=== PATIENT | male | born 1950 | race Caucasian/White ===

== ENCOUNTER 2018-01-07 18:20 | Emergency (ER) | payer MEDICARE ==
--- NOTE | 2018-01-07 19:20 | EDM.PDOC ---
ED HPI GENERAL MEDICAL PROBLEM - General Chief Complaint: General Stated Complaint: DIZZY, BLURRY VISION, CONFUSION Time Seen by Provider: 01/07/18 18:45 Source of Information: Reports: Patient, Family History Limitations: Reports: Physical Impairment - History of Present Illness INITIAL COMMENTS - FREE TEXT/NARRATIVE: 67-year-old male, usually healthy arrives after 4-5 hours of confusion, dysarthria, and visual disturbance and also a lack of the ability to stay focused on task. Last known normal was around 2 PM. He does not think he hit his head. He has had headaches for the last 2-3 days which is very unusual for him, he remembers taking 4 aspirin at bedtime 2 nights ago. He is oriented to place and person but not time. He has to struggle to remember the events of the day but does not have any block of total amnesia. Onset: Unknown/Unsure Severity: Moderate Associated Symptoms: Reports: Headaches, Other (Legs feel heavy bilaterally). Denies: Fever/Chills, Malaise, Shortness of Breath Denies Pain Score (Numeric/FACES): 0 - Related Data Allergies Allergy/AdvReac Type Severity Reaction Status Date / Time Sulfa (Sulfonamide Allergy Cannot Verified 08/31/15 07:14 Antibiotics) Remember Home Meds: Home Meds Hydrochlorothiazide 12.5 mg PO DAILY 08/29/15 [History] Acetaminophen/HYDROcodone [[place] 325-5 MG] 1 - 2 tab PO Q6H PRN 01/07/18 [ History] Oxymetazoline [Afrin Original 0.05% Nasal [place]] 2 spray NASBOTH DAILY 01/07/18 [History] Past Medical History HEENT History: Reports: Impaired Vision Cardiovascular History: Reports: High Cholesterol, Hypertension - Past Surgical History GI Surgical History: Reports: Appendectomy Social & Family History - Tobacco Use Smoking Status *Q: Never Smoker Second Hand Smoke Exposure: No - Caffeine Use Caffeine Use: Reports: Coffee, Soda - Alcohol Use Days Per Week of Alcohol Use: 0 - Recreational Drug Use Recreational Drug Use: No ED ROS GENERAL - Review of Systems Review Of Systems: See Below Constitutional: Denies: Fever, Chills, Malaise HEENT: Reports: Vision Change (Feels his left vision is not as sharp as it should be) Respiratory: Denies: Shortness of Breath Cardiovascular: Denies: Chest Pain GI/Abdominal: Denies: Abdominal Pain, Nausea, Vomiting : Reports: No Symptoms Skin: Reports: No Symptoms Neurological: Reports: Confusion, Dizziness, Headache, Trouble Speaking, Difficulty Walking, Change in Speech. Denies: Weakness Psychiatric: Reports: No Symptoms ED EXAM, GENERAL - Physical Exam Exam: See Below Exam Limited By: No Limitations General Appearance: Alert, No Apparent Distress Eye Exam: Left Eye: Vision Changes (Left vision is blurry, unsure if it's different from his chronic vision), Bilateral Eye: EOMI Head: Atraumatic, Normocephalic Neck: Normal Inspection, Supple. No: Carotid Bruit Respiratory/Chest: No Respiratory Distress, Lungs Clear Cardiovascular: Regular Rate, Rhythm, Extra Beats (Very occasional ectopic beats ) GI/Abdominal: Soft, Non-Tender Extremities: Normal Inspection Neurological: Alert, Confused, Disoriented, Slow to Respond, Memory Loss Recent Events. No: Oriented (Somewhat disoriented to time), Memory Loss Remote Events Psychiatric: Normal Affect, Normal Mood Skin Exam: Warm, Dry Course - Vital Signs Last Recorded V/S: Last Vital Signs Temp 94.8 F L 01/07/18 18:45 Pulse 66 01/07/18 20:24 Resp 16 01/07/18 18:45 BP 115/79 01/07/18 20:24 Pulse Ox 99 01/07/18 20:24 Orthostatic Blood Pressure [ 140/83 Standing] Orthostatic Blood Pressure [ 134/82 Sitting] Orthostatic Blood Pressure [ 127/78 Supine] - Orders/Labs/Meds Orders: Active Orders 24 hr Category Date Time Status Head wo Cont [CT] Stat Exams 01/07/18 19:10 Taken Sodium Chloride 0.9% [Saline Flush] Med 01/07/18 20:49 Active 10 ml FLUSH ASDIRECTED PRN Saline Lock Insert [OM.PC] Routine Oth 01/07/18 20:49 Ordered Medication Orders Sodium Chloride (Saline Flush) 10 ml FLUSH ASDIRECTED PRN PRN Reason: Keep Vein Open Last Admin: 01/07/18 20:58 Dose: 10 ml Labs: Laboratory Tests 01/07/18 01/07/18 Range/Units 19:20 19:20 WBC 7.1 (4.5-11.0) K/uL RBC 4.87 (4.30-5.90) M/uL Hgb 15.6 H (12.0-15.0) g/dL Hct 45.3 (40.0-54.0) % MCV 93 (80-98) fL MCH 32 H (27-31) pg MCHC 34 (32-36) % Plt Count 215 (150-400) K/uL Neut % (Auto) 61 (36-66) % Lymph % (Auto) 25 (24-44) % [place] % (Auto) 9 H (2-6) % Eos % (Auto) 5 H (2-4) % Baso % (Auto) 0 (0-1) % Sodium 142 (140-148) mmol/L Potassium 3.4 L (3.6-5.2) mmol/L Chloride 104 (100-108) mmol/L Carbon Dioxide 30 (21-32) mmol/L Anion Gap 11.4 (5.0-14.0) mmol/L BUN 14 (7-18) mg/dL Creatinine 1.0 (0.8-1.3) mg/dL Est Cr Clr Drug Dosing 84.48 mL/min Estimated GFR (MDRD) > 60 (>60) Glucose 122 H (74-106) mg/dL Calcium 9.2 (8.5-10.1) mg/dL Total Bilirubin 0.3 (0.2-1.0) mg/dL AST 26 (15-37) U/L ALT 28 (12-78) U/L Alkaline Phosphatase 70 (46-116) U/L Total Protein 7.0 (6.4-8.2) g/dL Albumin 3.9 (3.4-5.0) g/dL Globulin 3.1 (2.3-3.5) g/dL Albumin/Globulin Ratio 1.3 (1.2-2.2) Meds: Medications Generic Name Dose Route Start Last Admin Trade Name Freq PRN Reason Stop Dose Admin Sodium Chloride 10 ml 01/07/18 20:49 01/07/18 20:58 Saline Flush FLUSH 10 ml ASDIRECTED PRN Administration Keep Vein Open - Re-Assessments/Exams Free Text/Narrative Re-Assessment/Exam: 01/07/18 19:28 This patient has had some type of event very concerning, possibly CVA. Doubt transient global amnesia with the physical symptoms. CT the head without contrast will be obtained as well as a CBC and CMP. 01/07/18 20:49 CT was negative and labs were reassuring. After a phone consultation with Dr. Joshi, neurology in [place], patient will be transported for a more thorough evaluation. Departure - Departure Time of Disposition: 21:10 Disposition: DC/Tfer to Other 70 Condition: Fair Clinical Impression: Dysarthria, Confusion - Discharge Information Referrals: Bryant Ernandez MD [Primary Care Provider] - Forms: ED Department Discharge Care Plan Goals: Patient is stable, will be transported by ground to [facility] for a more thorough neurologic evaluation. - My Orders Last 24 Hours: My Active Orders 01/07/18 19:10 Head wo Cont [CT] Stat 01/07/18 20:49 Sodium Chloride 0.9% [Saline Flush] 10 ml FLUSH ASDIRECTED PRN Saline Lock Insert [OM.PC] Routine - Assessment/Plan Last 24 Hours: My Active Orders 01/07/18 19:10 Head wo Cont [CT] Stat 01/07/18 20:49 Sodium Chloride 0.9% [Saline Flush] 10 ml FLUSH ASDIRECTED PRN Saline Lock Insert [OM.PC] Routine
[2018-01-07 20:25] VITALS: BP 115/79
[2018-01-07] MEDS ORDERED: Sodium Chloride 0.9% 10 ML Syringe FLUSH PRN (20:49)
== END 2018-01-07 21:10 | disposition other institution (70) ==
LOC: JP.ED 18:20
DX: R47.1 Dysarthria and anarthria (principal); R41.0 Disorientation, unspecified; I10 Essential (primary) hypertension; E78.00 Pure hypercholesterolemia, unspecified; Z88.2 Allergy status to sulfonamides
CPT/HCPCS: 36415; 70450; 80053; 85025; 99285; J7050; 99284

== ENCOUNTER 2021-02-21 21:18 | Emergency (ER) | payer MEDICARE, MEDICAID ==
[2021-02-21 21:54] VITALS: BP 161/83; PULSE 85
--- NOTE | 2021-02-21 22:45 | EDM.PDOC ---
ED HPI GENERAL MEDICAL PROBLEM - General Chief Complaint: Genitourinary Problem Stated Complaint: KIDNEY STONES? Time Seen by Provider: 02/21/21 22:00 Source of Information: Reports: Patient History Limitations: Reports: No Limitations - History of Present Illness INITIAL COMMENTS - FREE TEXT/NARRATIVE: 70-year-old male with a history of kidney stones, presents with inability to urinate, lower abdominal pressure and pain and left flank pain earlier today. No fevers or chills. He feels he needs to urinate but cannot. Has some chronic issues with constipation, he took a stool softener earlier today and had a good bowel movement and that helped his flank pain but he still has urine retention. Onset: Gradual Duration: Hour(s): (Symptoms have been bothering him for about the last 8 hours) Location: Reports: Other (Left flank pain and lower abdominal pain) Associated Symptoms: Reports: Other (Inability to urinate). Denies: Fever/Chills, Headaches, Loss of Appetite, Nausea/Vomiting, Shortness of Breath denies pain Pain Score (Numeric/FACES): 0 - Related Data Allergies Allergy/AdvReac Type Severity Reaction Status Date / Time Sulfa (Sulfonamide Allergy Cannot Verified 08/31/15 07:14 Antibiotics) Remember Home Meds: Home Meds Hydrochlorothiazide 12.5 mg PO DAILY 08/29/15 [History] Oxymetazoline [Afrin Original 0.05% Nasal [place]] 2 spray NASBOTH DAILY 01/07/18 [History] Past Medical History HEENT History: Reports: Impaired Vision Cardiovascular History: Reports: High Cholesterol, Hypertension Genitourinary History: Reports: Renal Calculus Musculoskeletal History: Reports: Fracture - Infectious Disease History Infectious Disease History: Reports: Chicken Pox, Measles, Mumps - Past Surgical History GI Surgical History: Reports: Appendectomy Male Surgical History: Reports: Lithotripsy (ESWL) Social & Family History - Tobacco Use Tobacco Use Status *Q: Never Tobacco User - Caffeine Use Caffeine Use: Reports: Coffee - Recreational Drug Use Recreational Drug Use: No ED ROS GENERAL - Review of Systems Review Of Systems: See Below Constitutional: Denies: Fever, Chills HEENT: Reports: No Symptoms Respiratory: Denies: Shortness of Breath Cardiovascular: Denies: Chest Pain GI/Abdominal: Reports: Abdominal Pain (Lower abdomen), Constipation (Does have problems with constipation). Denies: Diarrhea, Nausea, Vomiting Musculoskeletal: Reports: Muscle Pain Neurological: Reports: No Symptoms Psychiatric: Reports: No Symptoms ED EXAM, GI/ABD - Physical Exam Exam: See Below Exam Limited By: No Limitations General Appearance: Alert, No Apparent Distress (Looks uncomfortable but not distressed) Eyes: Bilateral: Normal Appearance Head: Atraumatic Respiratory/Chest: No Respiratory Distress, Lungs Clear Cardiovascular: Regular Rate, Rhythm GI/Abdominal Exam: Soft, Other (There is a fullness to the lower abdomen with discomfort with palpation) (Male) Exam: Suprapubic Fullness Extremities: Normal Inspection Neurological: Alert, Oriented Psychiatric: Anxious Skin Exam: Warm, Dry Course - Vital Signs Last Recorded V/S: Last Vital Signs Temp 97.1 F 02/21/21 21:53 Pulse 85 02/21/21 21:53 Resp 18 02/21/21 21:53 BP 161/83 H 02/21/21 21:53 Pulse Ox 99 02/21/21 21:53 - Orders/Labs/Meds Orders: Active Orders 24 hr Category Date Time Status Insert [place] Catheter [Insert Urinary Catheter] [OM.PC] Care 02/21/21 22:45 Ordered Q24H Labs: Laboratory Tests 02/21/21 Range/Units 22:39 Urine Color Yellow (YELLOW) Urine Appearance Clear (CLEAR) Urine pH 6.0 (5.0-8.0) Ur Specific [place] 1.020 (1.008-1.030) Urine Protein Negative (NEGATIVE) mg/dL Urine Glucose (UA) Negative (NEGATIVE) mg/dL Urine Ketones Negative (NEGATIVE) mg/dL Urine Occult Blood Moderate H (NEGATIVE) Urine Nitrite Negative (NEGATIVE) Urine Bilirubin Negative (NEGATIVE) Urine Urobilinogen 0.2 (0.2-1.0) EU/dL Ur Leukocyte Esterase Negative (NEGATIVE) Urine RBC 10-20 H (0-5) Urine WBC 0-5 (0-5) Ur Epithelial Cells Not seen Amorphous Sediment Not seen Urine Bacteria Rare Urine Mucus Not seen - Re-Assessments/Exams Free Text/Narrative Re-Assessment/Exam: 02/21/21 22:45 Bladder scan showed about 300 cc of urine, so a straight cath was placed and the bladder emptied. His urine looked a little cloudy but it resolved all his symptoms. A UA was ordered, if clear CT scan will be considered. 02/22/21 00:18 UA showed 10-20 RBCs, otherwise negative. CT was done with the following result Impression: 1. A 6 mm stone at the bladder neck, concerning for bladder outlet obstruction. 2. Numerous bilateral small nonobstructing renal stones. No evidence of ureteral obstruction. Patient will return tomorrow if he is still having urinary outlet obstruction issues. Hopefully he just passes a stone. Departure - Departure Time of Disposition: 00:36 Disposition: Home, Self-Care 01 Clinical Impression: Acute urinary retention - Discharge Information Instructions: Acute Urinary Retention, Male Referrals: Bryant Ernandez MD [Primary Care Provider] - Forms: ED Department Discharge Care Plan Goals: Recheck tomorrow if unable to pass your urine. Sepsis Event Note (ED) - Evaluation Sepsis Screening Result: No Definite Risk - Focused Exam Vital Signs: Vital Signs Temp Pulse Resp BP Pulse Ox 02/21/21 21:53 97.1 F 85 18 161/83 H 99 - My Orders Last 24 Hours: My Active Orders 02/21/21 22:45 Insert [place] Catheter [Insert Urinary Catheter] [OM.PC] Q24H - Assessment/Plan Last 24 Hours: My Active Orders 02/21/21 22:45 Insert [place] Catheter [Insert Urinary Catheter] [OM.PC] Q24H
--- NOTE | 2021-02-22 00:18 | CRLCT ---
Indication: Flank pain, urinary retention Technique: Nonenhanced axial CT imaging through the abdomen and pelvis. Sagittal and coronal reconstructions are provided. Comparison: CT abdomen pelvis with contrast 12/10/2017 Findings: There are numerous bilateral small nonobstructing renal stones (10-15 on each side) largest measuring up to 6 mm in diameter. There is normal renal parenchymal volume and attenuation without hydronephrosis. There is a 6 mm stone at urinary bladder neck. The urinary bladder is mildly distended. There is no bladder wall thickening. There is unremarkable noncontrast appearance of the liver, gallbladder, spleen, pancreas, and adrenal glands. There is no abdominal lymphadenopathy. There is scattered atherosclerosis of the abdominal aorta without underlying aneurysm. The stomach and duodenum are unremarkable. There are no abnormally distended small bowel loops. The appendix is not visualized. There is no colonic wall thickening or mesenteric edema. Diverticulosis is noted in the sigmoid colon. Degenerative changes are noted in the lumbar spine. The included lung bases are clear. Impression: 1. A 6 mm stone at the bladder neck, concerning for bladder outlet obstruction. 2. Numerous bilateral small nonobstructing renal stones. No evidence of ureteral obstruction. Please note that all CT scans at this facility use dose modulation, iterative reconstruction, and/or weight-based dosing when appropriate to reduce radiation dose to as low as reasonably achievable. Dictated by Jamaal Gleason MD @ 02/22/2021 12:16:[address] Jamaal Gleason @ Feb 22 2021 12:16AM
== END 2021-02-22 00:36 | disposition home or self-care (01) ==
LOC: JP.ED 21:18
DX: R33.9 Retention of urine, unspecified (principal); I10 Essential (primary) hypertension; Z88.2 Allergy status to sulfonamides
CPT/HCPCS: 51701; 74176; 81001; 99284; 99284-25

== ENCOUNTER 2021-06-22 14:39 | Emergency (ER) | payer OTHER, MEDICARE, MEDICAID ==
[2021-06-22] MEDS ORDERED: Bacitracin Oint 1 GM U/D Packet TOP ONE (16:19)
[2021-06-22] MEDS ORDERED: Lidocaine 1% with EPINEPHrine 1:100,000 50 ML MDV SUBCUT STA (16:19)
[2021-06-22] MEDS ORDERED: Ketorolac 30 MG/ML SDV IM ONE (16:25)
[2021-06-22 16:27] VITALS: BP 168/86; PULSE 86
[2021-06-22] MEDS ORDERED: Diphtheria,Pertussis(Acell),Tetanus Vaccine 0.5 ML Syringe IM ONE (16:30)
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
== END 2021-06-22 17:05 | disposition home or self-care (01) ==
LOC: JP.ED 14:39
DX: S01.81XA Laceration without foreign body of other part of head, initial encounter (principal); I10 Essential (primary) hypertension; Z88.2 Allergy status to sulfonamides; Z23 Encounter for immunization; V89.2XXA Person injured in unspecified motor-vehicle accident, traffic, initial encounter; Y92.410 Unspecified street and highway as the place of occurrence of the external cause
CPT/HCPCS: 12013; 90471; 90715; 96372; 99282; J1885

== ENCOUNTER 2023-08-21 06:00 | Day surgery (SDC) | payer MEDICARE, MEDICAID ==
[2023-08-21] MEDS ORDERED: Acetaminophen 500 MG Tab PO ONE (06:30)
[2023-08-21] MEDS ORDERED: Lactated Ringers 1,000 ML IV SCH (06:30)
[2023-08-21] MEDS ORDERED: Bupivacaine 0.5%/EPINEPHrine 1:200,000 50 ML MDV ONE (06:55)
[2023-08-21] MEDS ORDERED: fentaNYL 250 MCG/5 ML SDV ONE (07:14)
[2023-08-21] MEDS ORDERED: Dexamethasone 4 MG/ML SDV ONE (07:15)
[2023-08-21] MEDS ORDERED: Neostigmine Methylsulfate 1 MG/ML 5 ML Syringe ONE (07:15)
[2023-08-21] MEDS ORDERED: Rocuronium 50 MG/5 ML Vial ONE (07:15)
[2023-08-21] MEDS ORDERED: Ondansetron 4 MG/2 ML SDV ONE (07:15)
[2023-08-21] MEDS ORDERED: Propofol 200 MG/20 ML SDV ONE (07:15)
[2023-08-21] MEDS ORDERED: Glycopyrrolate 0.2 MG/ML 5 ML MDV ONE (07:15)
[2023-08-21] MEDS ORDERED: ceFAZolin 2 GM in Premix Bag 1 BAG IV ONE (07:30)
[2023-08-21] MEDS ORDERED: ePHEDrine 50 MG/ML SDV ONE (07:52)
[2023-08-21] MEDS ORDERED: Lactated Ringers 1,000 ML ONE (08:26)
[2023-08-21] MEDS ORDERED: Acetaminophen/HYDROcodone 325-5 MG Tab PO PRN (10:36)
[2023-08-21] MEDS ORDERED: Ondansetron 4 MG/2 ML SDV IVPUSH PRN (11:00)
[2023-08-21 12:45] VITALS: BP 142/83; PULSE 59
== END 2023-08-21 12:45 | disposition home or self-care (01) ==
LOC: JP.SDS 06:00
PROVIDERS: ATTEND Student in an Organized Health Care Education/Training Program
DX: K40.90 Unilateral inguinal hernia, without obstruction or gangrene, not specified as recurrent (principal); I10 Essential (primary) hypertension; R73.9 Hyperglycemia, unspecified; E78.5 Hyperlipidemia, unspecified; R41.3 Other amnesia; Z79.899 Other long term (current) drug therapy; Z88.2 Allergy status to sulfonamides
CPT/HCPCS: A9270-GY; C1781; J0690; J1100; J2405; J2704; J2710; J3010; J3490; J7120